=== PATIENT | female | born 1975 | race Caucasian/White ===

== ENCOUNTER 2017-03-27 20:11 | Emergency (ER) | payer OTHER ==
[~2017-03-27] VITALS: Ht 170.2 cm; Wt 97.7 kg
[~2017-03-27 20:11] MED LIST: ENDOCET 5-3251 EACH PO; HYDROCODON-ACE1 EAC7 PO; IMITREX100 MG PO; IMITREX6 MG/0.52 SC; MIRENA52 MG IY; Motrin PO; NAPROXEN500 MG PO; PAIN & FEVER325 MG PO; PEPCID20 MG PO; PERCOCET 5/31 TABLET PO; PHENERGAN-CODE120 ML PO; PROVENTIL,2.5 MG/3 M IH; SUMATRIPTA6 MG/0.52; SUMATRIPTAN SU100 MG; TESSALON PERLE100 MG PO; ULTRAM50 MG PO; VALIUM5 MG PO; VITAMIN C1000 MG PO; VITAMIN D1000 INTUN PO
[2017-03-27] MEDS ORDERED: PERCOCET 5/31 TABLET PO (22:01)
[2017-03-27] MEDS ORDERED: NAPROSYN500 MG PO (22:01)
[2017-03-27] MEDS ORDERED: VALIUM5 MG PO (22:01)
[2017-03-27 22:16] VITALS: BP 115/87
== END 2017-03-27 22:17 | disposition home or self-care (01) ==
LOC: EME 20:11
DX: M51.17 Intervertebral disc disorders with radiculopathy, lumbosacral region (principal); Z88.8 Allergy status to other drugs, medicaments and biological substances
CPT/HCPCS: 72100; 99281; 99284; J1885

== ENCOUNTER 2017-10-13 20:41 | Emergency (ER) | payer OTHER ==
[~2017-10-13] VITALS: Ht 170.2 cm; Wt 99.6 kg
[~2017-10-13 20:41] MED LIST changes: +NAPROSYN500 MG PO
[2017-10-14] MEDS ORDERED: AMOXICILLIN500 MG PO (01:59)
[2017-10-14] MEDS ORDERED: FLONASE16 G1 BOTH NARES (01:59)
[2017-10-14 02:40] VITALS: BP 121/87
== END 2017-10-14 02:44 | disposition home or self-care (01) ==
LOC: EME 20:41
DX: J10.1 Influenza due to other identified influenza virus with other respiratory manifestations (principal); J02.0 Streptococcal pharyngitis; J45.909 Unspecified asthma, uncomplicated
CPT/HCPCS: 87502; 87651 90; 99281; 99284

== ENCOUNTER 2018-02-09 11:34 | Emergency (ER) | payer OTHER ==
[~2018-02-09] VITALS: Ht 170.2 cm; Wt 99.3 kg
[~2018-02-09 11:34] MED LIST changes: +AMOXICILLIN500 MG PO; +FLONASE16 G1 BOTH NARES
[2018-02-09 12:40] LABS: HEMATOCRIT 42.4 % (36.0-46.0); HEMOGLOBIN 14.8 G/DL (11.9-15.5); MCH 30.6 PG (29.0-34.0); MCHC 34.9 G/DL (30.0-36.0); MCV 87.8 FL (83-99); PLATELET COUNT 276 K/uL (156-360); RBC DIS.WIDTH-CV 13.1 % (11.8-14.6); RBC DIS.WIDTH-SD 41.2 % (39-53); RED BLOOD COUNT 4.83 M/uL (3.80-5.20); WHITE BLOOD COUNT 8.4 K/uL (4.1-10.2)
[2018-02-09 12:52] LABS: CHLORIDE 104 mEq/L (99-109); POTASSIUM 3.8 mEq/L (3.7-5.4); SODIUM 135 mEq/L (136-147)
[2018-02-09 12:53] LABS: GLUCOSE 101 mg/dL (70-99)
[2018-02-09 12:57] LABS: CREATININE 0.7 mg/dL (0.6-1.3); GFR ESTIMATE (CALCULATED) > 59 mL/min/
[2018-02-09 12:58] LABS: UREA NITROGEN (BUN) 6 mg/dL (9-23)
[2018-02-09 13:01] LABS: TROP-I INTERPRETATION NEGATIVE; TROPONIN-I < 0.01 ng/mL (0.0-0.30)
[2018-02-09 13:05] LABS: QUANTITATIVE HCG < 4.0 MIU/ML
[2018-02-09 15:04] VITALS: BP 135/88
== END 2018-02-09 15:15 | disposition home or self-care (01) ==
LOC: EME 11:34
PROVIDERS: Emergency Medicine
DX: R51 Headache (principal); R06.00 Dyspnea, unspecified; K21.9 Gastro-esophageal reflux disease without esophagitis; J45.909 Unspecified asthma, uncomplicated; Z79.891 Long term (current) use of opiate analgesic; Z97.5 Presence of (intrauterine) contraceptive device; Z86.69 Personal history of other diseases of the nervous system and sense organs; Z88.8 Allergy status to other drugs, medicaments and biological substances
CPT/HCPCS: 71046; 80048; 84484; 84702; 85027; 85379; 93005; 99281; 99285; J0780; J7030